=== PATIENT | female | born 1970 | race Caucasian/White ===

== ENCOUNTER 2021-08-07 01:34 | Day surgery (SDC) | payer OTHER, SELFPAY ==
[2021-07-28] MEDS: ceFAZolin SODIUM 1 GM VIAL IV PUSH (13:30)
[2021-07-29 12:31] VITALS: BMI 32.5
--- NOTE | 2021-07-29 12:59 | PC.NURSE ---
Report to the Outpatient Waiting Room, entrance under the green pavilion located off [facility], at time 0630 on date 08/07/21. OR Time: 0830. - You and your visitor will be asked a series of questions to screen for COVID 19 for your protection. - A mask is required within the hospital. One visitor will be allowed to accompany the patient into the hospital. Patients visitor will be instructed to remain with patient at all times or leave the building. We will allow the visitor to come back to the postoperative area when patient is ready. Preoperative COVID Testing Requirements: No COVID Test needed if: (proof is required; if not received patient will have Rapid Test prior to entry) - Patient has received COVID Vaccine at least 14 days prior to procedure date or - Patient has positive COVID test result within last 90 days of surgery date. COVID Test needed if above criteria is not met Patients may have clear liquids (water, carbonated beverages, clear teas, apple juice) until 3 hours prior to surgery with a maximum of 20 ounces. - No food from midnight until time of surgery Take the following medications with a SIP of water the morning of surgery: ALPRAZOLAM (IF NEEDED) Medications to discontinue per physician: VITAMINS/SUPPLEMENTS Date to take last dose: 08/03/21 Please no make-up, nail maori, hairspray, perfume, deodorant, or body powder the day of surgery. No jewelry (including any body piercings) or valuables the day of surgery, leave them at home. Please take a shower or bath the night before, or the morning of, surgery with an antibacterial soap. Wear comfortable, loose fitting clothing. - Jewelry must be removed prior to entering the operating room. Rings and piercings that are not removed may be cut off. - The hospital will not accept responsibility for valuables. - Please leave all valuables, including medications, at home the day of surgery. If you are going home after surgery, a licensed dump truck driver must drive you home. - NO public transportation without another adult. - We recommend that an adult stay with you for 24 hours following discharge. - We also recommend that you do not drive, make important decision, drink alcoholic beverages, or take any drugs that were not prescribed by your health care provider for at least 24 hours after your discharge time. Follow any additional instructions given to you from your surgeon. Telephone instructions given to HUYEN HARRISON and asked if any additional questions and then verbalized understanding. Patient advised to call surgeon office or pre surgery nurse liaison [phone] if any additional questions.
--- NOTE | 2021-08-06 17:28 | PM.IMHP ---
H&P: HPI History of Present Illness Date/Time: 08/06/21 17:28 Chief Complaint: Chronic sinusitis nasal obstruction nasal congestion septal deviation turbinate hypertrophy Narrative: patient presents for planned surgical procedure change in symptoms change in history. Review of Systems Constitutional: Constitutional: Denies fatigue, Denies fever(s) and Denies lethargy Eyes: Eyes: Denies blurry vision and Denies change in vision ENT: Reports as per HPI Cardiovascular: Cardiovascular: Denies chest pain Respiratory: Respiratory: Denies cough Endocrine: Endocrine: Denies fatigue Hematologic/Lymphatic: Hematologic/Lymphatic: Denies easy bleeding, Denies easy bruising and Denies lymphadenopathy Allergic/Immunologic: Allergic/Immunologic: Denies seasonal rhinorrhea [facility] Past Medical History Medical History Anxiety Headache Family History Family History Father Alcoholism Mother Hypertension Grandparent Depression Grandparent Heart disease Social History Social History Smoking packs per day: 1 Smoking cigarettes per day: 20.0 Years smoked: 39 Smoking pack-years: 39.00 Smoking status: Current every day smoker Tobacco type: cigarettes Alcohol intake: current Alcohol use details: 2/MONTH Substance use: former Substance use type: marijuana Living arrangements: alone Spiritual care concerns: No Meds Home Medications and Allergies Home Medications Medication Instructions Recorded Confirmed Type alprazolam 1 mg disintegrating 1 mg PO BID 06/10/21 07/29/21 History tablet gabapentin 300 mg capsule 600 mg PO HS 06/10/21 07/29/21 History montelukast 10 mg tablet 10 mg PO DAILY 06/10/21 07/29/21 History budesonide 0.25 mg/2 mL suspension 0.25 mg IRRIGATION BID #60 ml 07/07/21 07/29/21 Rx for nebulization acetaminophen [Tylenol Ex Str 100 mg PO BID PRN 07/29/21 07/29/21 History Rapid Release] folic acid 1 mg PO DAILY 07/29/21 07/29/21 History methotrexate sodium 15 mg PO WEEKLY 07/29/21 07/29/21 History olopatadine [Pataday] 1 drp EACH EYE DAILY 07/29/21 07/29/21 History Allergies Allergy/AdvReac Type Severity Reaction Status Date / Time amoxicillin Allergy Unknown Anaphylaxis Verified 07/29/21 12:18 clavulanic acid Allergy Unknown Anaphylaxis Verified 07/29/21 12:18 [From Augmentin] Exam Const: General: cooperative, healthy appearing, comfortable, well developed and alert HENMT: Head: normal to inspection, normocephalic and atraumatic Ears: hearing grossly normal bilaterally, external ears normal, TM's normal bilaterally and EAC's normal General nose exam: Normal external nose present, Normal nares present, No nasal polyps present, mucous membranes and turbinates abnormal, abnormal septum and Other nasal findings present ( Turbinate hypertrophy septal deviation) Face and sinus: normal facial exam Mouth: Yes Normal oral and palatal mucosa present, Yes lip normal, Yes tongue normal, Yes oropharynx normal and Yes moist mucous membranes Teeth and gingiva: dentition normal and gingiva normal Throat: posterior oropharynx normal, tonsils normal and uvula midline Eyes: General: appearance normal, both eyes and all related structures Periorbital: periorbital findings normal Eyelids: eyelids normal Conjunctivae: conjunctivae normal Sclera: sclerae normal Neck: Neck: normal visual inspection, full ROM and no lymphadenopathy Thyroid: thyroid normal Lymphatic: no lymphadenopathy noted Resp: Effort & Inspection: normal respiratory effort and able to speak in complete sentences Cardio: Jugular venous distension: no JVD Neuro: Cranial nerves: Yes CN's II-XII intact bilaterally Assessment and Plan Assessment and plan (1) Yessy bullosa: Code(s): J34.89 - Other specified disorders o
[2021-08-07] VITALS (12 sets, daily range): BP systolic 103–140; BP diastolic 40–92; PULSE 70–102; RESP 10–20; TEMP 36.1–36.3; O2SAT 92–100
--- NOTE | 2021-08-07 07:12 | WPDHPUPDATE1 ---
History and Physical Update Update Date/Time: 08/07/21 07:12 History and Physical has been reviewed, including an updated exam of the patient. There are NO changes in the patient's condition. Risks, benefits, and alternatives have been discussed and questions answered. Patient agrees to proceed with procedure.
[2021-08-07] MEDS: ACETAMINOPHEN 500 MG TABLET 1000 MG PO (09:11)
--- NOTE | 2021-08-07 09:12 | ECG_ITS ---
Measurements Intervals [place] Rate: 72 P: 59 PA: 144 QRS: -9 QRSD: 84 T: 38 QT: 393 QTc: 431 Interpretive Statements SINUS RHYTHM NORMAL ECG NO PREVIOUS ECG AVAILABLE FOR COMPARISON Electronically Signed On 08-07-2021 16:22:52 CDT by Harish Macias M.D.
--- NOTE | 2021-08-07 09:19 | P.PNAN_ITS ---
Anes - Initial Pre Proc Eval Procedure: Operation Date: 08/07/21 11:00 Proposed Procedures p Image Guided Endoscopic Bilateral Maxillary Antrostomy, Bilateral Total Ethmoidectomy, Bilateral Frontal Sinusotomy, - Miguel Angel Mahoney MD s Endoscopic Septoplasty, Bilateral Inferior Turbinectomy, Resection Yessy Bullosa - Miguel Angel Mahoney MD Date/Time: 08/07/21 09:19 Surgeon: Miguel Angel Mahoney MD Pre Op Diagnosis: chronic sinusitis Patient Data Age: 50 Gender: F Height: 1.63 m Weight: 83 kg Allergies Allergy/AdvReac Type Severity Reaction Status Date / Time amoxicillin Allergy Severe Anaphylaxis Verified 08/07/21 08:57 clavulanic acid Allergy Severe Anaphylaxis Verified 08/07/21 08:57 [From Augmentin] Home Medications Medication Instructions Recorded Confirmed Type alprazolam 1 mg disintegrating 1 mg PO BID 06/10/21 08/07/21 History tablet gabapentin 300 mg capsule 600 mg PO HS 06/10/21 08/07/21 History montelukast 10 mg tablet 10 mg PO DAILY 06/10/21 08/07/21 History budesonide 0.25 mg/2 mL suspension 0.25 mg IRRIGATION BID #60 ml 07/07/21 08/07/21 Rx for nebulization acetaminophen [Tylenol Ex Str 1,000 mg PO BID PRN 07/29/21 08/07/21 History Rapid Release] folic acid 1 mg PO DAILY 07/29/21 08/07/21 History methotrexate sodium 15 mg PO WEEKLY 07/29/21 08/07/21 History olopatadine [Pataday] 1 drp EACH EYE DAILY 07/29/21 08/07/21 History Patient hx anesthesia problems: post op nausea/vomiting Family hx anesthesia problems: none Results Review: All pre-operative results and documents have been reviewed as part of the pre-operative evaluation. [facility] Past Medical History Medical History Anxiety Headache Hyperlipidemia Rheumatoid arthritis Family History Family History Father Alcoholism Mother Hypertension Grandparent Depression Grandparent Heart disease Social History Social History Smoking packs per day: 1 Smoking cigarettes per day: 20.0 Years smoked: 39 Smoking pack-years: 39.00 Smoking status: Current every day smoker Tobacco type: cigarettes Alcohol intake: current Alcohol use details: 2/MONTH Substance use: former Substance use type: marijuana Living arrangements: alone Spiritual care concerns: No Anes - Eval Final PreProcedure Day of Procedure 08/07/21 09:19 Patient weight: overweight Heart: regular rate and rhythm Lungs: decreased breath sounds Airway: Mallampati scale class II Neurological: alert and oriented Last oral intake: >/= 8 hours ASA classification: III Emergent: no Anesthetic plan: proceed Anesthesia type and monitoring: general GIVS and standard monitoring Results Review: All pre-operative results and documents have been reviewed as part of the pre-operative evaluation. Informed Consent: The patient's anesthetic plan and its attendant risks and benefits were discussed with the patient/family/POA. Questions were solicited and answers provided to the satisfaction of the patient/family/POA.
[2021-08-07] MEDS: LACTATED RINGERS 1,000 ML 30 ML IV CONT ×2 (09:35→13:43)
[2021-08-07] MEDS: SCOPOLAMINE 1.5 MG PATCH TRANSDERM (09:41)
[2021-08-07] MEDS: ceFAZolin 2 GM/D5W 50 ML 2 GM/50 ML BAG IVPB (09:48)
[2021-08-07] MEDS: OXYMETAZOLINE HCL 0.05% NAS 15 ML BTL (*BKC) 1 SPRAY NASAL (09:55)
[2021-08-07] MEDS: fentaNYL CITRATE INJ (*CRX) 100 MCG/2 ML VIAL 25 MCG IV PUSH ×8 (14:05→15:47)
--- NOTE | 2021-08-07 14:07 | SUR.PHASEI ---
Patient's tooth came out in PACU. Dr. Mahoney and anesthesia made aware. RN has tooth in a cup to send home with patient.
[2021-08-07] MEDS: ONDANSETRON INJ 4 MG/2 ML VIAL IV PUSH (15:30)
[2021-08-07] MEDS: oxyCODONE HCL (*CRX) 5 MG TAB IR PO (15:46)
[2021-08-07] MEDS: diphenhydrAMINE HCl INJ 50 MG/ML VIAL 25 MG IV PUSH (16:10)
--- NOTE | 2021-08-07 16:17 | W.PM.PROC2 ---
Procedure Note - Detailed Date of Procedure 08/07/21 Pre-op Diagnosis chronic sinusitis, nasal polyp Post-op Diagnosis Same Procedure Performed Revision endoscopic image guided bilateral maxillary antrostomies total ethmoidectomies sphenoidotomies frontal sinusotomies resection of middle turbinates/reba bullosa as well as inferior turbinate out fractures Surgeon Miguel Angel Mahoney MD Anesthesia General Indications See above Findings Severely osteitic disease outflow tracks assess a taping to be drill outs right-sided cross cord to left recirculation in the bilateral maxillary sinuses remnant diseased ethmoid air cells opened sphenoids not open to dependent portion all areas corrected septoplasty performed as it was obstructing the left outflow the frontal sinus. Polypoid edema in all the disease sinuses. Description of Procedure Patient correctly identified consent verified. Patient brought operating room. Time-out performed. Image guidance initiated. General anesthesia induced endotracheal tube secured taped the left lower lip. Patient prepped and draped for procedure. Second time-out performed. Afrin-soaked pledgets placed bilaterally. Let sit for 5 minutes then removed a 0 degree endoscope utilized for beginning of case. Mild left septal deviation inferiorly more septal deviation moderate to severe superiorly obstructing the left frontal outflow. Remnant ethmoid cells which were not opened prior were opened with Kerrison micro debrider sphenoids open to the dependent bottom with Kerrison and microdebrider. Maxillary sinus is noted to have recirculation phenomenon bilaterally connect to the natural outflow tracts and widened. Local injected submucoperichondrial in the septum and middle turbinates middle turbinates removed with straight through cut given the significant polypoid edema bilaterally as well as our obstructive nature to the frontal outflow tracts which were the main target of this procedure. The stones were cauterized at Bovie with Bovie suction electrocautery setting of 15. This also took care of resecting the obstructive reba. Waucoma incision made on the left side left-sided mucoperichondrial flap elevated with 7 Swedish suction septum transected using osteotome right mucoperichondrial flap elevated. Deviated septum using Mario Alberto Espinosa forceps Wojciech forceps left frontal outflow is now accessible. Afrin-soaked pledgets placed the bilateral frontal outflow tracts. 70 degree scope utilized and frontal instruments at this point. It was quickly obvious that the frontal outflow tracts were so osteitic that there is no it enter it was difficult even enter with a frontal seeker infected was impossible in the left and only very very mildly possible in the right the outflow tract was then narrow. The decision was made to perform 2 B drill outs. Drilling commenced and took approximately 1 5-2 hours the left was so osteotomy cut 2 drills were used. The right was more easily cannulated however the right was widened to its maximal dimensions it was noted that was slightly narrow. At this time a cross cord 2b was performed where the right frontal outflow tract and right frontal sinus was connected to the left. Giving it a chance to stay patent and much wider outflow tract. Propel stents were placed the bilateral outflow tracts. No injury to cribriform orbit brain were noted no CSF leak. The bilateral nasal passages were then copiously irrigated bleeding was minimal hemostasis excellent. No pack was placed bilaterally below the propel stents. Waucoma incision closed anteriorly with 3 interrupted 5 0 fast gut sutures. [place] splints covered in bacitracin excuse me Bactroban/mupirocin placed in the bilateral nasal passages sutured anteriorly using a 3-0 mattressed nylon suture. Patient tolerated the procedure well total blood loss approximately 150 cc. Care the patient was turned over to Anesthesiology. I performed all dictated portions. Eunice
== END 2021-08-07 17:40 | disposition home or self-care (01) ==
PROVIDERS: PCP Internal Medicine; Visit Provider Otolaryngology
PROC: (CPT 31256; principal; 2021-08-07 11:00)
PROC: (CPT 30520; 2021-08-07 11:00)
DX: J32.9 Chronic sinusitis, unspecified (principal); J33.9 Nasal polyp, unspecified; J33.8 Other polyp of sinus; J34.3 Hypertrophy of nasal turbinates; J34.89 Other specified disorders of nose and nasal sinuses; J34.2 Deviated nasal septum; J32.1 Chronic frontal sinusitis; F17.210 Nicotine dependence, cigarettes, uncomplicated; F41.9 Anxiety disorder, unspecified
CPT/HCPCS: 31256; 31257; 31253; 31240; 30140; 61782; 93005; A9270; C2625; J0330; J0690; J1100; J1200; J2250; J2370; J2405; J2704; J3010; J7120

== ENCOUNTER → 2023-03-21 09:42 | Outpatient (CLI) | payer BC, SELFPAY ==
--- NOTE | ~2023-03-21 | CT_ITS ---
EXAMINATION: CT sinus wo con DATE: 03/21/2023 10:37 INDICATION: Chronic sinusitis TECHNIQUE: Computed tomography (CT) of the paranasal sinuses was performed without intravenous contra st. The dose-length product (DLP) was 371.61 mGy-cm. Iterative reconstruction was used. COMPARISON: None FINDINGS: There is normal development and pneumatization of the paranasal sinuses. Surgical changes a re noted medially in the maxillary sinuses. The frontal, sphenoid, and ethmoid sinuses are clear. The re is a polyp or mucous retention cyst inferiorly in the right maxillary sinus measuring up to 1.6 cm . The right infundibulum is opacified. There is mild mucosal thickening laterally in the left maxilla ry sinus. Visualized soft tissues are unremarkable. IMPRESSION: 1. Mild sinusitis as described above. Reviewed, dictated and finalized at location B. R CUTTER OUT
== END ==
PROVIDERS: PCP Internal Medicine; Visit Provider Otolaryngology
DX: J32.9 Chronic sinusitis, unspecified (principal)
CPT/HCPCS: 70486

== ENCOUNTER 2023-08-05 10:45 | Outpatient (CLI) | payer BC, SELFPAY ==
--- NOTE | ~2023-08-05 | MR_ITS ---
MRI of the brain Clinical History: Injury Technique: Axial and sagittal T1-weighted images were acquired. These were followed by axial T2-weigh omar, diffusion weighted, gradient, and FLAIR images. Findings: No significant signal abnormality seen in the brain parenchyma. No acute infarct, intracran ial hemorrhage, or mass lesion. Ventricles and subarachnoid spaces are unremarkable. Orbits are unremarkable. Paranasal sinuses and m astoid air cells are clear. Major intracranial flow voids are intact. Sagittal midline structures are intact. IMPRESSION: No significant abnormality seen. Reviewed, dictated and finalized at location M.
== END 2023-08-05 10:46 ==
LOC: GOSHIMG 10:47
PROVIDERS: PCP Internal Medicine; Visit Provider Psychiatry & Neurology Neurology
DX: Z87.828 Personal history of other (healed) physical injury and trauma (principal)
CPT/HCPCS: 70551